=== PATIENT | male | born 1960 | race African-American/Black ===

== ENCOUNTER 2019-09-16 16:03 | Inpatient (IN) ==
--- NOTE | 2019-09-16 16:34 | DR.GENAD ---
HPI Time Seen Time Seen by Provider: 09/16/19 16:36 PCP Primary Care Physician: DR.LEE العراقي HPI Comment HPI Comment: 59 yo aam w/ pmg dm, htn hld presents w/ SOB/ cough x 3 weeks. Patient recently dc'd from [facility] after being admitted for CAP. Hospitalized for 2 weeks. DC'd. Reports since that time experiencing continue productive cough w/ noted white sputum, and SOB/ FOSS. was dc'd from hospital on 2L [place] o2. Denies CP, edema, pnd, fever/ chills, abd pain, n/v, back pain, orthopnea. Complaint/Symptoms Chief Complaint:: "I WAS IN THE HOSPITAL IN [place] AT THE BEGINNING OF THE MONTH FOR PNEUMONIA AND SINCE THEN I HAVE BEEN ON OXYGEN AND IT DOESN'T SEEM TO BE HELPING TODAY. Self Treatment fo Chief Complaint: HOME O2 Nurses notes reviewed Nurses Notes Review: Yes Source History Provided: Patient and Significant Other Mode of Arrival Mode of Arrival: Ambulatory Timing Onset of Chief Complaint: 08/22/19 PMH PMH Past Medical History: Yes Past Medical History: Diabetes and Hyperthyroidism Past Surgical History: Yes Surgical History: Unknown Family History History of Family Medical Conditions: Yes Family Medical History: Diabetes Mellitus, Cancer, Coronary Artery Disease and Hypertension Social History Does patient currently use any type of tobacco product: No Have you used tobacco products in the last 12 months: No Type of Tobacco Use: None Does any household member use tobacco: No Alcohol Use: None Do you use any recreational Drugs:: No Lives With: Spouse Lives Where: Home infectious screening In the last 2 months have you had wt loss of >10#?: NO Have you had fever, night sweats or hemotysis?: No Have you traveled outside the country in the last 6 months?: No ROS Review of Systems Constitutional: No Symptoms Reported Eyes: No Symptoms Reported ENTM: No Symptoms Reported Respiratoy: Productive Cough, Short of Breath and Other (foss); negative Orthopnea Cardiovascular: No Symptoms Reported Gastrointestinal/Abdominal: No Symptoms Reported Genitourinary: No Symptoms Reported Neurological: No Symptoms Reported Musculoskeletal: No Symptoms Reported Integumentary: No Symptoms Reported Hematologic/Lymphatic: No Symptoms Reported Endocrine: No Symptoms Reported Psychiatric: No Symptoms Reported All Other Systems: Reviewed and Negative PE Vital Signs Vitals: Temperature 97.8 F Pulse Rate [Apical] 93 Pulse Rate 84 Respiratory Rate 22 Blood Pressure [Right Arm] 132/84 Blood Pressure 132/84 O2 Sat by Pulse Oximetry 99 General Limitations: No Limitations General Appearance: Alert and Anxious Head Head Exam: Normal Inspection Eyes Eye exam: Normal Appearance ENT ENT Exam: Normal Exam External Ear Exam: Normal External Inspection TM/Canal Exam: Bilateral: Normal Nose Exam: Normal Nose Exam Mouth Exam: Normal Inspection Throat Exam: Normal Inspection Neck Neck Exam: Normal Inspection Chest Chest Inspection: Normal Inspection Respiratory Respiratory Exam: Other (tachypenic, 85% pulse ox on 2L NC, fiant bibasilar rhonchi ); negative Accessory Muscle Use, Chest Wall Tenderness, Prolonged Expiratory Phase and Stridor Respiratory Exam: Bilateral: Clear to Auscultation Cardiovascular Cardiovascular Exam: Regular Rate and Normal Rhythm Abdominal Exam Abdominal Exam: Normal Inspection, Normal Bowel Sounds and Soft Extremities Extremities Exam: Normal Inspection Back Back Exam: Normal Inspection Neurologic Neurological Exam: Alert and Oriented X3 Psychiatric Psychiatric Exam: Normal Affect and Normal Mood Skin Skin Exam: Warm, Dry, Intact and Normal Color MDM Additional Information Additional Information Obtained From: Family Differential Diagnosis Differential Diagnosis: PE, PNA, AL, CHF, sepsis COURSE Treatment Treatment: 59 yo AAM w/ prev hx of htn, hld, dm recently dc'd 2 weeks ago from outside hospital after being dx'd w/ cap. Was discharged on supplemental o2 2L NC. Reports since DC increasing FOSS. Hypoxic on arrival and mildly tacpenic w/ Pulse ox 85% on 2L NC. Improved to 90's on 4L. ABG obtained which demonstrated hypoxemia. CXR demonstrated rll infiltrate, LLL obscured by cardiac silhouette. Lactate <1. CBC and cmp unremarkable. TNI wnl. CTA obtained to r/o PE, negative for pe but did demonstrate complex bibasilar infiltrates vs ILD. Vanco/ cefepime empirically started. Blood / sputum cx ordered. D/w Dr Moody whom agrees to admit. Education/Counseling Education/Counseling: Patient and Family ROR Labs Reviewed Laboratory Results Reviewed?: Yes Result Diagrams: 09/16/19 16:57 09/16/19 16:57 Laboratory: 09/16/19 18:54 Sputum - Expectorated Sputum - Final WBC 7.4 X10^3/uL (3.6-10.0) 09/16/19 16:57 RBC 4.41 X10^6/uL (4.7-6.0) L 09/16/19 16:57 Hgb 11.9 g/dL (13.5-18.0) L 09/16/19 16:57 Hct 35.6 % (42.0-54.0) L 09/16/19 16:57 MCV 80.8 fL (80.0-100.0) 09/16/19 16:57 MCH 26.9 pg (27.0-34.0) L 09/16/19 16:57 MCHC 33.3 g/dL (33.0-35.0) 09/16/19 16:57 RDW 16.1 % (11.6-16.5) 09/16/19 16:57 Plt Count 265 X10^3/uL (150.0-450.0) 09/16/19 16:57 MPV 7.6 fL (7.4-11.0) 09/16/19 16:57 Neut % (Auto) 64.4 % (42.0-75.0) 09/16/19 16:57 Lymph % (Auto) 23.8 % (21.0-51.0) 09/16/19 16:57 [place] % (Auto) 6.8 % (0.0-13.0) 09/16/19 16:57 Eos % (Auto) 4.2 % (0.9-2.9) H 09/16/19 16:57 Baso % (Auto) 0.8 % (0.2-1.0) 09/16/19 16:57 Neut # (Auto) 4.8 x10^3/uL (2.2-4.8) 09/16/19 16:57 Lymph # (Auto) 1.8 X10^3/uL (1.3-2.9) 09/16/19 16:57 [place] # (Auto) 0.5 x10^3/uL (0.3-0.8) 09/16/19 16:57 Eos # (Auto) 0.3 x10^3/uL (0.0-0.2) H 09/16/19 16:57 Baso # (Auto) 0.1 X10^3/uL (0.0-0.1) 09/16/19 16:57 Absolute Nucleated RBC 0.0 /100WBC 09/16/19 16:57 Sample Site Rrad 09/16/19 17:12 ABG pH 7.430 (7.35-7.45) 09/16/19 17:12 ABG pCO2 36.0 mmHg (35.0-45.0) 09/16/19 17:12 ABG pO2 99.0 mmHg (80.0-100.0) 09/16/19 17:12 ABG HCO3 23.9 mmol/L (22-26) 09/16/19 17:12 ABG O2 Saturation 98.0 % (90-100) 09/16/19 17:12 ABG Base Excess -0.1 mmol/L (-2.0-2.0) 09/16/19 17:12 Bony Test Pos 09/16/19 17:12 A-a Gradient 113.0 mmHg 09/16/19 17:12 FiO2 36.0 09/16/19 17:12 Blood Gas Comments Pt nanci well elj 09/16/19 17:12 Sodium 140 mmol/L (136-145) 09/16/19 16:57 Corrected Sodium 140 mmol/L (136-145) 09/16/19 16:57 Potassium 3.4 mmol/L (3.5-5.1) L 09/16/19 16:57 Chloride 106 mmol/L (98-107) 09/16/19 16:57 Carbon Dioxide 21.7 mmol/L (21-32) 09/16/19 16:57 BUN 16 mg/dL (7-18) 09/16/19 16:57 Creatinine 1.20 mg/dL (0.70-1.30) 09/16/19 16:57 Est GFR (MDRD) Af Amer > 60 (>60) 09/16/19 16:57 Est GFR (MDRD) Non-Af > 60 (>60) 09/16/19 16:57 Glucose 116 mg/dL (65-99) H 09/16/19 16:57 Lactic Acid 0.9 mmol/L (0.4-2.0) 09/16/19 17:46 Calcium 8.6 mg/dL (8.5-10.1) 09/16/19 16:57 Troponin I < 0.02 ng/mL (0-1.5) 09/16/19 16:57 EKG Rate: 99 [place]: LAD Rhythm: NSR Block: None ST: Normal Opioid Opioid Risk Tool Total: 0 Total Score Risk Category: Low Risk Copyright: Coleman BAJWA predicting aberrant behaviors Diagnosis Discharge Problem: HAP (hospital-acquired pneumonia), Hypoxemia Instructions Forms: Excuse From Work Patient Portal
[2019-09-16 17:14] LABS: BASOPHILS # (AUTO) 0.1 X10^3/uL (0.0-0.1); BASOPHILS % (AUTO) 0.8 % (0.2-1.0); EOSINOPHILS # (AUTO) 0.3 x10^3/uL (0.0-0.2); EOSINOPHILS % (AUTO) 4.2 % (0.9-2.9); HEMATOCRIT 35.6 % (42.0-54.0); HEMOGLOBIN 11.9 g/dL (13.5-18.0); LYMPHOCYTES # (AUTO) 1.8 X10^3/uL (1.3-2.9); LYMPHOCYTES % (AUTO) 23.8 % (21.0-51.0); MEAN CORPUSCULAR HEMOGLOBIN 26.9 pg (27.0-34.0); MEAN CORPUSCULAR HGB CONC 33.3 g/dL (33.0-35.0); MEAN CORPUSCULAR VOLUME 80.8 fL (80.0-100.0); MEAN PLATELET VOLUME 7.6 fL (7.4-11.0); MONOCYTES # (AUTO) 0.5 x10^3/uL (0.3-0.8); MONOCYTES % (AUTO) 6.8 % (0.0-13.0); NEUTROPHILS # (AUTO) 4.8 x10^3/uL (2.2-4.8); NEUTROPHILS % (AUTO) 64.4 % (42.0-75.0); PLATELET COUNT 265 X10^3/uL (150.0-450.0); RED BLOOD COUNT 4.41 X10^6/uL (4.7-6.0); RED CELL DISTRIBUTION WIDTH 16.1 % (11.6-16.5); WHITE BLOOD COUNT 7.4 X10^3/uL (3.6-10.0)
[2019-09-16 17:19] LABS: ABG ALLEN TEST POS; ABG BASE EXCESS -0.1 mmol/L (-2.0-2.0); ABG HCO3 23.9 mmol/L (22-26)
[2019-09-16 17:38] LABS: BLOOD UREA NITROGEN 16 mg/dL (7-18); CALCIUM 8.6 mg/dL (8.5-10.1); CARBON DIOXIDE 21.7 mmol/L (21-32); CHLORIDE 106 mmol/L (98-107); COR NA(FOR HYPERGLY) 140 mmol/L (136-145); SODIUM 140 mmol/L (136-145); TROPONIN I < 0.02 ng/mL (0-1.5); eGFR NON BLACK RACES > 60 (>60)
[2019-09-16] MEDS ORDERED: VANCOMYCIN HCL 250 MG, VANCOMYCIN HCL 1 G in D5W 250 ML IV 250 ML IV ONE (17:40)
[2019-09-16] MEDS ORDERED: NS IV ONE (17:41)
[2019-09-16] MEDS ORDERED: MAXIPIME IV ONE (17:41)
[2019-09-16] MEDS ORDERED: NS 1000 ML 1,000 ML IV ONE (17:42)
[2019-09-16] MEDS ORDERED: SALINE 3% 15 ML NEB TX NEB ONE (17:43)
[2019-09-16] MEDS ORDERED: SALINE 3% 15 ML NEB TX ONE (17:46)
[2019-09-16] MEDS ORDERED: VANCOMYCIN HCL ONE ×2 (17:47→17:48)
[2019-09-16] MEDS ORDERED: MAXIPIME VIAL 1 GRAM ONE (17:47)
[2019-09-16] MEDS ORDERED: NS 1000 ML 1,000 ML ONE (17:47)
[2019-09-16] MEDS ORDERED: NS 100 ML IV + SPIKE MINIBAG* 100 ML IV ONE (17:49)
[2019-09-16] MEDS ORDERED: NS 250 ML IV 250 ML IV ONE (17:49)
[2019-09-16] MEDS ORDERED: NS 100 ML IV 100 ML IV ONE (17:55)
--- NOTE | 2019-09-16 18:53 | CT ---
HISTORY: Shortness of breath, cough and congestion x1 month Study: CTA chest with contrast Comparison: None Technique: Multiple axial images of the chest were obtained from the thoracic inlet to the upper abdomen after the administration of IV contrast. Axial, sagittal, and coronal maximal intensity planer images were submitted as well. Findings: No central filling defect within the pulmonary arteries to suggest acute pulmonary embolism. Mild cardiomegaly. No pericardial effusion. Coronary artery calcifications. No mediastinal lymphadenopathy. Small hiatal hernia. Diffuse peribronchovascular and interstitial coarse reticular and ground-glass opacities which is in a predominantly basilar distribution. No pleural effusion or pneumothorax. The central airways are clear. Visualized portions of the upper abdomen are unremarkable. The osseous structures are intact. The soft tissues are unremarkable. IMPRESSION: Diffuse peribronchovascular and interstitial interstitial coarse reticular and ground-glass opacities in a predominantly basilar distribution. Findings may reflect infectious/inflammatory interstitial pneumonia or hypersensitivity pneumonitis. Follow-up to resolution recommended. Reported By:
[2019-09-16] MEDS ORDERED: DEXTROMETHORPHAN GUAIFENESIN PO PRN (20:03)
[2019-09-16 20:19] LABS: BILIRUBIN,URINE NEGATIVE (NEGATIVE); BLOOD/HEMOGLOBIN,URINE NEGATIVE (NEGATIVE); GLUCOSE, URINE NEGATIVE (NEGATIVE); KETONES,URINE NEGATIVE (NEGATIVE); LEUKOCYTE ESTERASE ,URINE NEGATIVE (NEGATIVE); NITRITES,URINE NEGATIVE (NEGATIVE); PROTEIN,URINE 1+ (NEGATIVE); UROBILINOGEN,URINE NORMAL (NORMAL)
[2019-09-16 20:26] LABS: APPEARANCE,URINE CLEAR (CLEAR); COLOR,URINE YELLOW (YELLOW)
[2019-09-16 20:27] LABS: BACTERIA,URINE NEGATIVE /HPF (NEGATIVE); RBC,URINE NONE SEEN /HPF (0-3); SQUAMOUS EPITHELIAL CELL,UR RARE /HPF (NEGATIVE)
[2019-09-16] MEDS ORDERED: PHARMACY CONSULT - VANCOMYCIN XX SCH (21:00)
[2019-09-16] MEDS ORDERED: PROVENTIL NEB TX 0.083% 2.5MG/ 3ML NEB SCH ×2 (21:45)
[2019-09-16] MEDS: NS 1000 ML 1,000 ML IV SCH (22:06)
[2019-09-16] MEDS: TESSALON PERLES PO SCH (23:00)
[2019-09-17] MEDS: ROBITUSSIN DM PO PRN ×3 (00:03→16:39)
[2019-09-17] MEDS: NS 1000 ML 1,000 ML IV SCH ×6 (00:03→20:09)
[2019-09-17] MEDS: MAXIPIME VIAL 2 GRAMS 2 G in NS 100 ML IV + SPIKE MINIBAG* 100 ML IV SCH ×4 (00:03→21:17)
[2019-09-17] MEDS: DUONEB 0.5 MG/3 MG NEB SCH ×6 (01:08→20:29)
[2019-09-17 03:31] VITALS: BMI 31.9
[2019-09-17 04:57] LABS: BASOPHILS % (AUTO) 0.6 % (0.2-1.0); EOSINOPHILS # (AUTO) 0.3 x10^3/uL (0.0-0.2); EOSINOPHILS % (AUTO) 4.5 % (0.9-2.9); HEMATOCRIT 34.2 % (42.0-54.0); HEMOGLOBIN 11.3 g/dL (13.5-18.0); LYMPHOCYTES # (AUTO) 1.8 X10^3/uL (1.3-2.9); LYMPHOCYTES % (AUTO) 26.4 % (21.0-51.0); MEAN CORPUSCULAR HEMOGLOBIN 26.5 pg (27.0-34.0); MEAN CORPUSCULAR HGB CONC 33.1 g/dL (33.0-35.0); MEAN PLATELET VOLUME 7.6 fL (7.4-11.0); MONOCYTES # (AUTO) 0.6 x10^3/uL (0.3-0.8); MONOCYTES % (AUTO) 8.4 % (0.0-13.0); NEUTROPHILS % (AUTO) 60.1 % (42.0-75.0); PLATELET COUNT 261 X10^3/uL (150.0-450.0); RED BLOOD COUNT 4.28 X10^6/uL (4.7-6.0); RED CELL DISTRIBUTION WIDTH 15.5 % (11.6-16.5); WHITE BLOOD COUNT 6.7 X10^3/uL (3.6-10.0)
[2019-09-17 05:08] LABS: ALANINE AMINOTRANSFERASE 41 Units/L (12-78); ALBUMIN 2.3 g/dL (3.4-5.0); ALKALINE PHOSPHATASE 47 Units/L (46-116); ASPARTATE AMINO TRANSFERASE 36 Units/L (15-37); BLOOD UREA NITROGEN 12 mg/dL (7-18); CALCIUM 8.2 mg/dL (8.5-10.1); CARBON DIOXIDE 21.6 mmol/L (21-32); CHLORIDE 108 mmol/L (98-107); COR CA(FOR HYPOALB) 9.6 mg/dL (8.5-10.1); CREATININE 1.19 mg/dL (0.70-1.30); SODIUM 141 mmol/L (136-145); TOTAL PROTEIN 6.2 g/dL (6.4-8.2); eGFR NON BLACK RACES > 60 (>60)
[2019-09-17] MEDS: TESSALON PERLES PO SCH ×3 (05:39→21:17)
[2019-09-17] MEDS ORDERED: POTASSIUM CHL 60 MEQ/NS 0.45% 500 ML IV PRN (05:59)
[2019-09-17] MEDS ORDERED: MICRO K EXTEN CAP 10 MEQ PO PRN (05:59)
[2019-09-17] MEDS ORDERED: POTASSIUM CHLORIDE LIQ 20 MEQ UDC PO PRN (05:59)
[2019-09-17] MEDS ORDERED: K-RIDER 10 MEQ/NS 100 ML 10 MEQ/100 ML BAG IV PRN (05:59)
[2019-09-17] MEDS ORDERED: POTASSIUM CHL 40 MEQ/NS 0.45% 500 ML IV PRN (05:59)
[2019-09-17] MEDS ORDERED: KLOR-CON PO PRN (05:59)
[2019-09-17] MEDS: K-DUR TAB 20 MEQ PO PRN (06:22)
[2019-09-17 08:06] LABS: ABG BASE EXCESS -1.8 mmol/L (-2.0-2.0); ABG HCO3 22.1 mmol/L (22-26)
[2019-09-17] MEDS ORDERED: NS 250 ML IV 250 ML IV ONE ×2 (08:13→20:41)
[2019-09-17] MEDS ORDERED: VANCOMYCIN HCL ONE ×3 (08:14→20:42)
[2019-09-17] MEDS: VANCOMYCIN HCL 500 MG, VANCOMYCIN HCL 1 G in NS 250 ML IV 250 ML IV SCH ×2 (08:17→21:16)
[2019-09-17] MEDS: ASPIRIN 81 MG CHEWTAB PO SCH (08:19)
[2019-09-17] MEDS: PULMICORT NEB TX 0.5 MG NEB SCH ×2 (08:46→20:29)
[2019-09-17] MEDS: SOLU-Medrol 125 MG VIAL IVP SCH ×3 (09:54→21:17)
[2019-09-17] MEDS: LOVENOX INJ 40 MG SYR SC SCH (10:30)
[2019-09-17] MEDS ORDERED: HumuLIN R SUBCUT PRN (11:30)
--- NOTE | 2019-09-17 11:39 | DR.H&P ---
H&P History & Physical for Day of: H&P Date: 09/17/19 Chief Complaint Chief Complaint: worsening SOB, cough Allergies Allergies Allergy/AdvReac Type Severity Reaction Status Date / Time No Known Drug Allergies Allergy Verified 09/16/19 16:20 History of Present Illness History of Present Illness: Mr. Cabrera is a 59y/o male recently admitted at [facility] for pneumonia on 08/18/19 and discharged a week later. He was sent home on 2L oxygen and antibiotics. Patient reports his breathing has been worsening since being home. He was told to follow up with Pulmonary on discharge. [facility] and he was told the earliest appointment to see Pulmonary would be in 2 months. He also went back to work and was having SOB on exertion. He has been using 2L oxygen continuously. He has productive cough with white sputum. Denies fever or chills. No sick contact or recent travel. Non- smoker. Past Medical History Past Medical History: Diabetes and Hyperthyroidism Past Surgical History Surgical History: Unknown Family History Family Medical History: Diabetes Mellitus, Cancer, Coronary Artery Disease and Hypertension Social History Does patient currently use any type of tobacco product: No Have you used tobacco products in the last 12 months: No Type of Tobacco Use: None Does any household member use tobacco: No Alcohol Use: None Drug Use: None Prescription drug monitoring program results: PDMP was not reviewed Medications Home Medications: No Known Drug Allergies Allergy (Verified 09/16/19 16:20) CONTINUE taking the following medications albuterol sulfate 2.5 mg INHALATION QID 09/16/19 [History] aspirin 81 mg PO DAILY 09/16/19 [History] benzonatate 100 mg PO TID 09/16/19 [History] dextromethorphan-guaifenesin [Tussin DM] 10 ml PO Q4-6H PRN 09/16/19 [History] metformin 850 mg PO BID 09/16/19 [History] Labs Result Diagrams: 09/17/19 04:35 09/17/19 04:35 Labs: 09/16/19 18:54 Sputum - Expectorated Sputum Sputum Culture - Preliminary 09/16/19 18:54 Sputum - Expectorated Sputum - Final Laboratory WBC 6.7 X10^3/uL (3.6-10.0) 09/17/19 04:35 RBC 4.28 X10^6/uL (4.7-6.0) L 09/17/19 04:35 Hgb 11.3 g/dL (13.5-18.0) L 09/17/19 04:35 Hct 34.2 % (42.0-54.0) L 09/17/19 04:35 MCV 80.0 fL (80.0-100.0) 09/17/19 04:35 MCH 26.5 pg (27.0-34.0) L 09/17/19 04:35 MCHC 33.1 g/dL (33.0-35.0) 09/17/19 04:35 RDW 15.5 % (11.6-16.5) 09/17/19 04:35 Plt Count 261 X10^3/uL (150.0-450.0) 09/17/19 04:35 MPV 7.6 fL (7.4-11.0) 09/17/19 04:35 Neut % (Auto) 60.1 % (42.0-75.0) 09/17/19 04:35 Lymph % (Auto) 26.4 % (21.0-51.0) 09/17/19 04:35 [place] % (Auto) 8.4 % (0.0-13.0) 09/17/19 04:35 Eos % (Auto) 4.5 % (0.9-2.9) H 09/17/19 04:35 Baso % (Auto) 0.6 % (0.2-1.0) 09/17/19 04:35 Neut # (Auto) 4.0 x10^3/uL (2.2-4.8) 09/17/19 04:35 Lymph # (Auto) 1.8 X10^3/uL (1.3-2.9) 09/17/19 04:35 [place] # (Auto) 0.6 x10^3/uL (0.3-0.8) 09/17/19 04:35 Eos # (Auto) 0.3 x10^3/uL (0.0-0.2) H 09/17/19 04:35 Baso # (Auto) 0.0 X10^3/uL (0.0-0.1) 09/17/19 04:35 Absolute Nucleated RBC 0.0 /100WBC 09/17/19 04:35 Sample Site Rbra 09/17/19 08:01 ABG pH 7.420 (7.35-7.45) 09/17/19 08:01 ABG pCO2 34.0 mmHg (35.0-45.0) L 09/17/19 08:01 ABG pO2 61.0 mmHg (80.0-100.0) L 09/17/19 08:01 ABG HCO3 22.1 mmol/L (22-26) 09/17/19 08:01 ABG O2 Saturation 91.0 % (90-100) 09/17/19 08:01 ABG Base Excess -1.8 mmol/L (-2.0-2.0) 09/17/19 08:01 Bony Test Na 09/17/19 08:01 A-a Gradient 46.0 mmHg 09/17/19 08:01 FiO2 21.0 09/17/19 08:01 Blood Gas Comments Renzo abg well-mtf 09/17/19 08:01 Sodium 141 mmol/L (136-145) 09/17/19 04:35 Corrected Sodium TNP 09/17/19 04:35 Potassium 3.7 mmol/L (3.5-5.1) 09/17/19 04:35 Chloride 108 mmol/L (98-107) H 09/17/19 04:35 Carbon Dioxide 21.6 mmol/L (21-32) 09/17/19 04:35 BUN 12 mg/dL (7-18) 09/17/19 04:35 Creatinine 1.19 mg/dL (0.70-1.30) 09/17/19 04:35 Est GFR (MDRD) Af Amer > 60 (>60) 09/17/19 04:35 Est GFR (MDRD) Non-Af > 60 (>60) 09/17/19 04:35 Glucose 88 mg/dL (65-99) 09/17/19 04:35 POC Glucose (mg/dL) 84 mg/dL (65-99) 09/17/19 05:28 Lactic Acid 0.9 mmol/L (0.4-2.0) 09/16/19 17:46 Calcium 8.2 mg/dL (8.5-10.1) L 09/17/19 04:35 Corrected Calcium 9.6 mg/dL (8.5-10.1) 09/17/19 04:35 Total Bilirubin 0.30 mg/dL (0.2-1.0) 09/17/19 04:35 AST 36 Units/L (15-37) 09/17/19 04:35 ALT 41 Units/L (12-78) 09/17/19 04:35 Alkaline Phosphatase 47 Units/L (46-116) 09/17/19 04:35 Troponin I < 0.02 ng/mL (0-1.5) 09/16/19 16:57 Total Protein 6.2 g/dL (6.4-8.2) L 09/17/19 04:35 Albumin 2.3 g/dL (3.4-5.0) L 09/17/19 04:35 Globulin 3.9 g/dL (2.5-4.5) 09/17/19 04:35 Albumin/Globulin Ratio 0.6 Ratio (1.1-2.1) L 09/17/19 04:35 Specimen Type Clean catch urine 09/16/19 20:11 Urine Color Yellow (YELLOW) 09/16/19 20:11 Urine Appearance Clear (CLEAR) 09/16/19 20:11 Urine pH 5.0 (5.0 - 8.0) 09/16/19 20:11 Ur Specific [place] 1.015 (1.000-1.030) 09/16/19 20:11 Urine Protein 1+ (NEGATIVE) 09/16/19 20:11 Urine Glucose (UA) Negative (NEGATIVE) 09/16/19 20:11 Urine Ketones Negative (NEGATIVE) 09/16/19 20:11 Urine Occult Blood Negative (NEGATIVE) 09/16/19 20:11 Urine Nitrite Negative (NEGATIVE) 09/16/19 20:11 Urine Bilirubin Negative (NEGATIVE) 09/16/19 20:11 Urine Urobilinogen Normal (NORMAL) 09/16/19 20:11 Ur Leukocyte Esterase Negative (NEGATIVE) 09/16/19 20:11 Urine RBC None seen /HPF (0-3) 09/16/19 20:11 Urine WBC None seen /HPF (0-5) 09/16/19 20:11 Ur Squamous Epith Cells Rare /HPF (NEGATIVE) 09/16/19 20:11 Urine Bacteria Negative /HPF (NEGATIVE) 09/16/19 20:11 Ur Culture Indicated? No/not indicated 09/16/19 20:11 Review of Systems Constitutional: denies Fever, Chills, Sweats and Malaise Eyes: No Symptoms Reported ENT: No Symptoms Reported Respiratory: Cough, Shortness of Breath, SOB with Excertion and Sputum Cardiovascular: denies Chest Pain and Edema Gastrointestinal: denies Nausea, Vomiting, Abdominal Pain and Diarrhea Genitourinary: No Symptoms Reported Musculoskeletal: No Symptoms Reported Skin: No Symptoms Reported Neurological: No Symptoms Reported Physical Exam Vital Signs: Temperature 98.9 F Pulse Rate [Apical] 99 Pulse Rate 94 Respiratory Rate 28 Blood Pressure [Right Arm] 137/71 Blood Pressure 132/84 O2 Sat by Pulse Oximetry 94 Oriented: Normal Eyes: Normal Nose: Normal Throat: Normal Respiratory: Diminished Throughout and Rales Throughout Cardiovascular: Normal Auscultation: Bowel Sounds: Normal Palpation: Normal Tenderness: Normal Skin: Normal Musculoskeletal: Normal Psychiatric: Normal Mood Description: Calm Affect: Normal Speech Pattern: Clear and Appropriate Assessment/Plan (1) HAP (hospital-acquired pneumonia): Status: Acute Plan: CTA: negative for PE. Diffuse peribronchovascular and interstitial interstitial coarse reticular and ground-glass opacities in a predominantly basilar distribution. Findings may reflect infectious/inflammatory interstitial pneumonia or hypersensitivity pneumonitis. 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 Will treat at [facility] with vancomycin and cefepime. Add solumedrol 60 mg IV q8hrs. Duonebs, Pulmicort BID, aggressive pulmonary toilet. Sputum cx pending (2) Hypoxemia: Status: Acute Plan: noted on ABG, continue O2, currently on 4L, wean as tolerated to keep sats >92%. (3) Type 2 diabetes mellitus: Status: Acute Plan: on metformin 850 BID, will continue SSI while inpatient
[2019-09-17] MEDS: SNACK - Diabetic Appropriate PO SCH (20:08)
[2019-09-17] MEDS ORDERED: ZITHROMAX TAB 250 MG PO ONE (22:05)
[2019-09-17 23:46] LABS: MYCOPLASMA PNEUMONIAE IGM AB NEGATIVE (NEGATIVE)
[2019-09-18] MEDS: DUONEB 0.5 MG/3 MG NEB SCH ×6 (00:15→23:06)
[2019-09-18] MEDS ORDERED: ZITHROMAX TAB 250 MG PO ONE (00:24)
[2019-09-18] MEDS: NS 1000 ML 1,000 ML IV SCH ×4 (01:53→21:30)
--- NOTE | 2019-09-18 06:03 | RAD ---
HISTORY: Follow-up pneumonia Study: Chest PA and lateral Comparison: 09/16/2019 Findings: The heart is enlarged. The aurelio are normal. The upper lung trevizo are clear. Bibasilar interstitial and peribronchial infiltrates are present suggestive of bronchopneumonia and unchanged from the prior examination. No pleural effusions are identified. The bony thorax is unremarkable. IMPRESSION: No change bibasilar interstitial and peribronchial infiltrates suggestive of bibasilar bronchopneumonia Reported By:
[2019-09-18] MEDS: MAXIPIME VIAL 2 GRAMS 2 G in NS 100 ML IV + SPIKE MINIBAG* 100 ML IV SCH ×3 (06:15→21:16)
[2019-09-18] MEDS: SOLU-Medrol 125 MG VIAL IVP SCH ×3 (06:15→21:15)
[2019-09-18] MEDS: TESSALON PERLES PO SCH ×3 (06:15→21:16)
[2019-09-18 06:26] LABS: BLOOD UREA NITROGEN 17 mg/dL (7-18); CALCIUM 8.2 mg/dL (8.5-10.1); CARBON DIOXIDE 19.2 mmol/L (21-32); CHLORIDE 107 mmol/L (98-107); COR NA(FOR HYPERGLY) 141 mmol/L (136-145); CREATININE 1.28 mg/dL (0.70-1.30); SODIUM 140 mmol/L (136-145); eGFR NON BLACK RACES > 60 (>60)
[2019-09-18 06:33] LABS: BASOPHILS % (AUTO) 0.4 % (0.2-1.0); HEMATOCRIT 33.8 % (42.0-54.0); HEMOGLOBIN 11.4 g/dL (13.5-18.0); LYMPHOCYTES # (AUTO) 1.1 X10^3/uL (1.3-2.9); LYMPHOCYTES % (AUTO) 11.1 % (21.0-51.0); MEAN CORPUSCULAR HGB CONC 33.6 g/dL (33.0-35.0); MEAN CORPUSCULAR VOLUME 80.3 fL (80.0-100.0); MEAN PLATELET VOLUME 8.2 fL (7.4-11.0); MONOCYTES # (AUTO) 0.2 x10^3/uL (0.3-0.8); MONOCYTES % (AUTO) 2.3 % (0.0-13.0); NEUTROPHILS # (AUTO) 8.9 x10^3/uL (2.2-4.8); NEUTROPHILS % (AUTO) 86.2 % (42.0-75.0); PLATELET COUNT 256 X10^3/uL (150.0-450.0); RED BLOOD COUNT 4.21 X10^6/uL (4.7-6.0); RED CELL DISTRIBUTION WIDTH 15.6 % (11.6-16.5); WHITE BLOOD COUNT 10.3 X10^3/uL (3.6-10.0)
[2019-09-18] MEDS: PULMICORT NEB TX 0.5 MG NEB SCH ×2 (08:27→23:06)
[2019-09-18] MEDS: VANCOMYCIN HCL 500 MG, VANCOMYCIN HCL 1 G in NS 250 ML IV 250 ML IV SCH ×4 (08:38→22:34)
[2019-09-18] MEDS: ASPIRIN 81 MG CHEWTAB PO SCH (08:38)
[2019-09-18] MEDS: K-DUR TAB 20 MEQ PO PRN (08:38)
[2019-09-18] MEDS: ROBITUSSIN DM PO PRN (08:39)
--- NOTE | 2019-09-18 08:45 | PCM.PROG ---
Progress Note Progress Note for Day of Date of Exam: 09/18/19 Subjective Subjective: Pt is a 59 y/o m recently admitted at [facility] for pneumonia on 08/18/19 and discharged a week later. He was sent home on 2L O2 and antibiotics. His breathing has worsened since being home. He was told to follow up with Pulmonary on discharge. [facility] and he was told the earliest appointment to see Pulmonary would be in 2 months. He also went back to work and was having SOB on exertion. He has been using 2L oxygen continuously. He has productive cough with white sputum. Denies fever or chills. No sick contact or recent travel. Non-smoker. -CTA(09/16): negative for PE. Diffuse peribronchovascular and interstitial interstitial coarse reticular and ground-glass opacities in a predominantly basilar distribution. Findings may reflect infectious/ inflammatory interstitial pneumonia or hypersensitivity pneumonitis. -CXR(09/18):No change bibasilar interstitial and peribronchial infiltrates suggestive of bibasilar bronchopneumonia. -Pt report little improvement in breathing from yesterday. Past Medical Family Social History Past Med/Fam/Surg Hx: No changes since H&P Allergies: Allergies No Known Drug Allergies Allergy (Verified 09/16/19 16:20) Vital Signs and I&O's Vital Signs: Temperature 97.7 F Pulse Rate [Apical] 93 Pulse Rate 98 Respiratory Rate 20 Blood Pressure [Right Arm] 135/66 Blood Pressure 132/84 O2 Sat by Pulse Oximetry 93 Intake and Output: Intake & Output 09/15/19 09/16/19 09/17/19 09/18/19 23:59 23:59 23:59 23:59 Intake Total 240 / 240 3190 / 3190 200 / 200 Balance 240 / 240 3190 / 3190 200 / 200 Physical Exam Oriented: Normal Eyes: Normal Nose: Normal Throat: Normal Cardiovascular: Normal Auscultation: Bowel Sounds: Normal Tenderness: Normal Skin: Normal Musculoskeletal: Normal Psychiatric: Normal Mood Description: Calm Affect: Normal Speech Pattern: Clear and Appropriate Laboratory and Diagnostics Result Diagrams: 09/18/19 06:05 09/18/19 06:05 Labs: 09/16/19 18:54 Sputum - Expectorated Sputum Sputum Culture - Preliminary 09/16/19 18:54 Sputum - Expectorated Sputum - Final Laboratory WBC 10.3 X10^3/uL (3.6-10.0) H 09/18/19 06:05 RBC 4.21 X10^6/uL (4.7-6.0) L 09/18/19 06:05 Hgb 11.4 g/dL (13.5-18.0) L 09/18/19 06:05 Hct 33.8 % (42.0-54.0) L 09/18/19 06:05 MCV 80.3 fL (80.0-100.0) 09/18/19 06:05 MCH 27.0 pg (27.0-34.0) 09/18/19 06:05 MCHC 33.6 g/dL (33.0-35.0) 09/18/19 06:05 RDW 15.6 % (11.6-16.5) 09/18/19 06:05 Plt Count 256 X10^3/uL (150.0-450.0) 09/18/19 06:05 MPV 8.2 fL (7.4-11.0) 09/18/19 06:05 Neut % (Auto) 86.2 % (42.0-75.0) H 09/18/19 06:05 Lymph % (Auto) 11.1 % (21.0-51.0) L 09/18/19 06:05 [place] % (Auto) 2.3 % (0.0-13.0) 09/18/19 06:05 Eos % (Auto) 0.0 % (0.9-2.9) L 09/18/19 06:05 Baso % (Auto) 0.4 % (0.2-1.0) 09/18/19 06:05 Neut # (Auto) 8.9 x10^3/uL (2.2-4.8) H 09/18/19 06:05 Lymph # (Auto) 1.1 X10^3/uL (1.3-2.9) L 09/18/19 06:05 [place] # (Auto) 0.2 x10^3/uL (0.3-0.8) L 09/18/19 06:05 Eos # (Auto) 0.0 x10^3/uL (0.0-0.2) 09/18/19 06:05 Baso # (Auto) 0.0 X10^3/uL (0.0-0.1) 09/18/19 06:05 Absolute Nucleated RBC 0.0 /100WBC 09/18/19 06:05 Sample Site Rbra 09/17/19 08:01 ABG pH 7.420 (7.35-7.45) 09/17/19 08:01 ABG pCO2 34.0 mmHg (35.0-45.0) L 09/17/19 08:01 ABG pO2 61.0 mmHg (80.0-100.0) L 09/17/19 08:01 ABG HCO3 22.1 mmol/L (22-26) 09/17/19 08:01 ABG O2 Saturation 91.0 % (90-100) 09/17/19 08:01 ABG Base Excess -1.8 mmol/L (-2.0-2.0) 09/17/19 08:01 Bony Test Na 09/17/19 08:01 A-a Gradient 46.0 mmHg 09/17/19 08:01 FiO2 21.0 09/17/19 08:01 Blood Gas Comments Renzo abg well-mtf 09/17/19 08:01 Sodium 140 mmol/L (136-145) 09/18/19 06:05 Corrected Sodium 141 mmol/L (136-145) 09/18/19 06:05 Potassium 3.8 mmol/L (3.5-5.1) 09/18/19 06:05 Chloride 107 mmol/L (98-107) 09/18/19 06:05 Carbon Dioxide 19.2 mmol/L (21-32) L 09/18/19 06:05 BUN 17 mg/dL (7-18) 09/18/19 06:05 Creatinine 1.28 mg/dL (0.70-1.30) 09/18/19 06:05 Est GFR (MDRD) Af Amer > 60 (>60) 09/18/19 06:05 Est GFR (MDRD) Non-Af > 60 (>60) 09/18/19 06:05 Glucose 123 mg/dL (65-99) H 09/18/19 06:05 POC Glucose (mg/dL) 125 mg/dL (65-99) H 09/18/19 06:00 Lactic Acid 0.9 mmol/L (0.4-2.0) 09/16/19 17:46 Calcium 8.2 mg/dL (8.5-10.1) L 09/18/19 06:05 Corrected Calcium 9.6 mg/dL (8.5-10.1) 09/17/19 04:35 Magnesium 1.6 mg/dL (1.7-2.9) L 09/18/19 06:05 Total Bilirubin 0.30 mg/dL (0.2-1.0) 09/17/19 04:35 AST 36 Units/L (15-37) 09/17/19 04:35 ALT 41 Units/L (12-78) 09/17/19 04:35 Alkaline Phosphatase 47 Units/L (46-116) 09/17/19 04:35 Troponin I < 0.02 ng/mL (0-1.5) 09/16/19 16:57 Total Protein 6.2 g/dL (6.4-8.2) L 09/17/19 04:35 Albumin 2.3 g/dL (3.4-5.0) L 09/17/19 04:35 Globulin 3.9 g/dL (2.5-4.5) 09/17/19 04:35 Albumin/Globulin Ratio 0.6 Ratio (1.1-2.1) L 09/17/19 04:35 Specimen Type Clean catch urine 09/16/19 20:11 Urine Color Yellow (YELLOW) 09/16/19 20:11 Urine Appearance Clear (CLEAR) 09/16/19 20:11 Urine pH 5.0 (5.0 - 8.0) 09/16/19 20:11 Ur Specific [place] 1.015 (1.000-1.030) 09/16/19 20:11 Urine Protein 1+ (NEGATIVE) 09/16/19 20:11 Urine Glucose (UA) Negative (NEGATIVE) 09/16/19 20:11 Urine Ketones Negative (NEGATIVE) 09/16/19 20:11 Urine Occult Blood Negative (NEGATIVE) 09/16/19 20:11 Urine Nitrite Negative (NEGATIVE) 09/16/19 20:11 Urine Bilirubin Negative (NEGATIVE) 09/16/19 20:11 Urine Urobilinogen Normal (NORMAL) 09/16/19 20:11 Ur Leukocyte Esterase Negative (NEGATIVE) 10/26/19 20:11 Urine RBC None seen /HPF (0-3) 09/16/19 20:11 Urine WBC None seen /HPF (0-5) 09/16/19 20:11 Ur Squamous Epith Cells Rare /HPF (NEGATIVE) 09/16/19 20:11 Urine Bacteria Negative /HPF (NEGATIVE) 09/16/19 20:11 Ur Culture Indicated? No/not indicated 09/16/19 20:11 Influenza Type A (PCR) Negative (NEGATIVE) 09/18/19 00:05 Influenza Type B (PCR) Negative (NEGATIVE) 09/18/19 00:05 Mycoplasma pneumon IgG Negative (NEGATIVE) 09/17/19 22:41 Plan (1) HAP (hospital-acquired pneumonia): Status: Acute Plan: CXR today-No change bibasilar interstitial and peribronchial infiltrates suggestive of bibasilar bronchopneumonia. 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 Recent admission for pne umonia. Will treat at [facility] with Abx(09/17):Vancomycin +Cefepime+Azithromycin Add solumedrol 60 mg IV q8hrs. Duonebs, Pulmicort BID, aggressive pulmonary toilet. Sputum cx pending Continue to monitor. (2) Hypoxemia: Status: Acute Plan: noted on ABG, continue O2, currently on 4L, wean as tolerated to keep sats >92%. (3) Type 2 diabetes mellitus: Status: Acute Qualifiers: Diabetes mellitus residential insulin use: unspecified residential insulin use status Diabetes mellitus complication status: with other specified complication Qualified Code(s): E11.69 - Type 2 diabetes mellitus with other specified complication Plan: on metformin 850 BID, will continue SSI while inpatient
[2019-09-18] MEDS: LOVENOX INJ 40 MG SYR SC SCH (09:38)
[2019-09-18] MEDS: ZITHROMAX TAB 250 MG PO SCH (13:18)
[2019-09-18] MEDS ORDERED: PHARMACY COMMENT IV SCH (20:45)
[2019-09-18] MEDS: SNACK - Diabetic Appropriate PO SCH (21:29)
[2019-09-18 21:39] LABS: CREATININE 1.28 mg/dL (0.70-1.30); VANCOMYCIN,TROUGH 11.2 ug/mL (15-20)
[2019-09-18] MEDS ORDERED: VANCOMYCIN HCL ONE ×2 (22:11)
[2019-09-18] MEDS ORDERED: NS 250 ML IV 250 ML IV ONE (22:11)
[2019-09-19] MEDS: DUONEB 0.5 MG/3 MG NEB SCH ×4 (00:07→17:22)
[2019-09-19] MEDS: MAXIPIME VIAL 2 GRAMS 2 G in NS 100 ML IV + SPIKE MINIBAG* 100 ML IV SCH ×3 (05:20→21:10)
[2019-09-19] MEDS: TESSALON PERLES PO SCH ×3 (05:21→21:10)
[2019-09-19] MEDS: SOLU-Medrol 125 MG VIAL IVP SCH ×3 (05:38→21:09)
[2019-09-19 06:20] LABS: BASOPHILS # (AUTO) 0.1 X10^3/uL (0.0-0.1); BASOPHILS % (AUTO) 0.3 % (0.2-1.0); HEMATOCRIT 35.1 % (42.0-54.0); HEMOGLOBIN 11.7 g/dL (13.5-18.0); LYMPHOCYTES # (AUTO) 1.3 X10^3/uL (1.3-2.9); LYMPHOCYTES % (AUTO) 6.3 % (21.0-51.0); MEAN CORPUSCULAR HEMOGLOBIN 26.7 pg (27.0-34.0); MEAN CORPUSCULAR HGB CONC 33.2 g/dL (33.0-35.0); MEAN CORPUSCULAR VOLUME 80.6 fL (80.0-100.0); MEAN PLATELET VOLUME 8.1 fL (7.4-11.0); MONOCYTES # (AUTO) 1.2 x10^3/uL (0.3-0.8); MONOCYTES % (AUTO) 5.7 % (0.0-13.0); NEUTROPHILS # (AUTO) 17.9 x10^3/uL (2.2-4.8); NEUTROPHILS % (AUTO) 87.7 % (42.0-75.0); PLATELET COUNT 317 X10^3/uL (150.0-450.0); RED BLOOD COUNT 4.36 X10^6/uL (4.7-6.0); RED CELL DISTRIBUTION WIDTH 15.5 % (11.6-16.5); WHITE BLOOD COUNT 20.5 X10^3/uL (3.6-10.0)
[2019-09-19 06:59] LABS: BLOOD UREA NITROGEN 20 mg/dL (7-18); CHLORIDE 109 mmol/L (98-107); CREATININE 1.22 mg/dL (0.70-1.30); SODIUM 140 mmol/L (136-145); eGFR NON BLACK RACES > 60 (>60)
--- NOTE | 2019-09-19 08:00 | PCM.PROG ---
Progress Note Progress Note for Day of Date of Exam: 09/19/19 Subjective Subjective: Pt is a 59 y/o m recently admitted at [facility] for pneumonia on 08/18/19 and discharged a week later. He was sent home on 2L O2 and antibiotics. His breathing has worsened since being home. He was told to follow up with Pulmonary on discharge. [facility] and he was told the earliest appointment to see Pulmonary would be in 2 months. He also went back to work and was having SOB on exertion. He has been using 2L oxygen continuously. He has productive cough with white sputum. Denies fever or chills. No sick contact or recent travel. Non-smoker. -CTA(09/16): negative for PE. Diffuse peribronchovascular and interstitial interstitial coarse reticular and ground-glass opacities in a predominantly basilar distribution. Findings may reflect infectious/ inflammatory interstitial pneumonia or hypersensitivity pneumonitis. -CXR(09/18):No change bibasilar interstitial and peribronchial infiltrates suggestive of bibasilar bronchopneumonia. -Pt feeling a little better today, however still requiring 4L O2. He has been coughing up white sputum. Afebrile. Past Medical Family Social History Past Med/Fam/Surg Hx: No changes since H&P Allergies: Allergies No Known Drug Allergies Allergy (Verified 09/16/19 16:20) Review of Systems ROS: No change since H&P Vital Signs and I&O's Vital Signs: Temperature 98.3 F Pulse Rate [Apical] 90 Pulse Rate 98 Respiratory Rate 20 Blood Pressure [Right Arm] 146/78 Blood Pressure 132/84 O2 Sat by Pulse Oximetry 96 Intake and Output: Intake & Output 09/16/19 09/17/19 09/18/19 09/19/19 23:59 23:59 23:59 23:59 Intake Total 240 / 240 3190 / 3190 4305 / 4305 120 / 120 Balance 240 / 240 3190 / 3190 4305 / 4305 120 / 120 Physical Exam Oriented: Normal Eyes: Normal Nose: Normal Throat: Normal Cardiovascular: Normal Auscultation: Bowel Sounds: Normal Tenderness: Normal Skin: Normal Musculoskeletal: Normal Psychiatric: Normal Mood Description: Calm Affect: Normal Speech Pattern: Clear and Appropriate Laboratory and Diagnostics Result Diagrams: 09/19/19 05:22 09/19/19 05:22 Labs: 09/16/19 17:01 Blood Blood Culture - Preliminary 09/16/19 16:57 Blood Blood Culture - Preliminary 09/16/19 18:54 Sputum - Expectorated Sputum Sputum Culture - Final 09/16/19 18:54 Sputum - Expectorated Sputum - Final Laboratory WBC 20.5 X10^3/uL (3.6-10.0) H D 09/19/19 05:22 RBC 4.36 X10^6/uL (4.7-6.0) L 09/19/19 05:22 Hgb 11.7 g/dL (13.5-18.0) L 09/19/19 05:22 Hct 35.1 % (42.0-54.0) L 09/19/19 05:22 MCV 80.6 fL (80.0-100.0) 09/19/19 05:22 MCH 26.7 pg (27.0-34.0) L 09/19/19 05:22 MCHC 33.2 g/dL (33.0-35.0) 09/19/19 05:22 RDW 15.5 % (11.6-16.5) 09/19/19 05:22 Plt Count 317 X10^3/uL (150.0-450.0) 09/19/19 05:22 MPV 8.1 fL (7.4-11.0) 09/19/19 05:22 Neut % (Auto) 87.7 % (42.0-75.0) H 09/19/19 05:22 Lymph % (Auto) 6.3 % (21.0-51.0) L 09/19/19 05:22 [place] % (Auto) 5.7 % (0.0-13.0) 09/19/19 05:22 Eos % (Auto) 0.0 % (0.9-2.9) L 09/19/19 05:22 Baso % (Auto) 0.3 % (0.2-1.0) 09/19/19 05:22 Neut # (Auto) 17.9 x10^3/uL (2.2-4.8) H 09/19/19 05:22 Lymph # (Auto) 1.3 X10^3/uL (1.3-2.9) 09/19/19 05:22 [place] # (Auto) 1.2 x10^3/uL (0.3-0.8) H 09/19/19 05:22 Eos # (Auto) 0.0 x10^3/uL (0.0-0.2) 09/19/19 05:22 Baso # (Auto) 0.1 X10^3/uL (0.0-0.1) 09/19/19 05:22 Absolute Nucleated RBC 0.0 /100WBC 09/19/19 05:22 Sample Site Rbra 09/17/19 08:01 ABG pH 7.420 (7.35-7.45) 09/17/19 08:01 ABG pCO2 34.0 mmHg (35.0-45.0) L 09/17/19 08:01 ABG pO2 61.0 mmHg (80.0-100.0) L 09/17/19 08:01 ABG HCO3 22.1 mmol/L (22-26) 09/17/19 08:01 ABG O2 Saturation 91.0 % (90-100) 09/17/19 08:01 ABG Base Excess -1.8 mmol/L (-2.0-2.0) 09/17/19 08:01 Bony Test Na 09/17/19 08:01 A-a Gradient 46.0 mmHg 09/17/19 08:01 FiO2 21.0 09/17/19 08:01 Blood Gas Comments Renzo abg well-mtf 09/17/19 08:01 Sodium 140 mmol/L (136-145) 09/19/19 05:22 Corrected Sodium TNP 09/19/19 05:22 Potassium 3.9 mmol/L (3.5-5.1) 09/19/19 05:22 Chloride 109 mmol/L (98-107) H 09/19/19 05:22 Carbon Dioxide 18.0 mmol/L (21-32) L 09/19/19 05:22 BUN 20 mg/dL (7-18) H 09/19/19 05:22 Creatinine 1.22 mg/dL (0.70-1.30) 09/19/19 05:22 Est GFR (MDRD) Af Amer > 60 (>60) 09/19/19 05:22 Est GFR (MDRD) Non-Af > 60 (>60) 09/19/19 05:22 Glucose 109 mg/dL (65-99) H 09/19/19 05:22 POC Glucose (mg/dL) 110 mg/dL (65-99) H 09/19/19 05:32 Lactic Acid 0.9 mmol/L (0.4-2.0) 09/16/19 17:46 Calcium 9.0 mg/dL (8.5-10.1) 09/19/19 05:22 Corrected Calcium 9.6 mg/dL (8.5-10.1) 09/17/19 04:35 Magnesium 1.6 mg/dL (1.7-2.9) L 09/18/19 06:05 Total Bilirubin 0.30 mg/dL (0.2-1.0) 09/17/19 04:35 AST 36 Units/L (15-37) 09/17/19 04:35 ALT 41 Units/L (12-78) 09/17/19 04:35 Alkaline Phosphatase 47 Units/L (46-116) 09/17/19 04:35 Troponin I < 0.02 ng/mL (0-1.5) 09/16/19 16:57 Total Protein 6.2 g/dL (6.4-8.2) L 09/17/19 04:35 Albumin 2.3 g/dL (3.4-5.0) L 09/17/19 04:35 Globulin 3.9 g/dL (2.5-4.5) 09/17/19 04:35 Albumin/Globulin Ratio 0.6 Ratio (1.1-2.1) L 09/17/19 04:35 Specimen Type Clean catch urine 09/16/19 20:11 Urine Color Yellow (YELLOW) 09/16/19 20:11 Urine Appearance Clear (CLEAR) 09/16/19 20:11 Urine pH 5.0 (5.0 - 8.0) 09/16/19 20:11 Ur Specific [place] 1.015 (1.000-1.030) 09/16/19 20:11 Urine Protein 1+ (NEGATIVE) 09/16/19 20:11 Urine Glucose (UA) Negative (NEGATIVE) 09/16/19 20:11 Urine Ketones Negative (NEGATIVE) 09/16/19 20:11 Urine Occult Blood Negative (NEGATIVE) 09/16/19 20:11 Urine Nitrite Negative (NEGATIVE) 09/16/19 20:11 Urine Bilirubin Negative (NEGATIVE) 09/16/19 20:11 Urine Urobilinogen Normal (NORMAL) 09/16/19 20:11 Ur Leukocyte Esterase Negative (NEGATIVE) 09/16/19 20:11 Urine RBC None seen /HPF (0-3) 09/16/19 20:11 Urine WBC None seen /HPF (0-5) 09/16/19 20:11 Ur Squamous Epith Cells Rare /HPF (NEGATIVE) 09/16/19 20:11 Urine Bacteria Negative /HPF (NEGATIVE) 09/16/19 20:11 Ur Culture Indicated? No/not indicated 09/16/19 20:11 Vancomycin Trough 11.2 ug/mL (15-20) L 09/18/19 21:11 Influenza Type A (PCR) Negative (NEGATIVE) 09/18/19 00:05 Influenza Type B (PCR) Negative (NEGATIVE) 09/18/19 00:05 Mycoplasma pneumon IgG Negative (NEGATIVE) 09/17/19 22:41 Plan (1) HAP (hospital-acquired pneumonia): Status: Acute Plan: Pt w/ no change in O2 requirement. He did not require home O2 until recent hospitalization and likely needs bronchoscopy that this facility is unable to provide. CM to look into available options, otherwise will need referral to pulmonary. Discussed w/ pt and CM that patient will need to be continued on supplemental home O2 on discharge. I explained to patient he would also need to complete antibiotic course and be on a tapered steroid regimen. Will also benefit from referral to pulmonary rehab. CXR(09/18)-No change bibasilar interstitial and peribronchial infiltrates suggestive of bibasilar bronchopneumonia. 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 Will treat as HCAP with Abx(09/17):Vancomycin +Cefepime+Azithromycin Add solumedrol 60 mg IV q8hrs. Duonebs, Pulmicort BID, aggressive pulmonary toilet. SputumCx:Normal charis Continue to monitor. (2) Hypoxemia: Status: Acute Plan: noted on ABG, continue O2, currently on 4L, wean as tolerated to keep sats >92%. (3) Type 2 diabetes mellitus: Status: Chronic Qualifiers: Diabetes mellitus complication status: with other specified complication Diabetes mellitus alf insulin use: unspecified continuous churn buttermaker insulin use s tatus Qualified Code(s): E11.69 - Type 2 diabetes mellitus with other specified complication Plan: on metformin 850 BID, will continue SSI while inpatient
[2019-09-19] MEDS: LOVENOX INJ 40 MG SYR SC SCH (08:29)
[2019-09-19] MEDS: ZITHROMAX TAB 250 MG PO SCH (08:29)
[2019-09-19] MEDS: ASPIRIN 81 MG CHEWTAB PO SCH (08:29)
[2019-09-19] MEDS: PULMICORT NEB TX 0.5 MG NEB SCH ×2 (09:00→21:10)
[2019-09-19] MEDS: ROBITUSSIN DM PO PRN (13:21)
[2019-09-19] MEDS: VANCOMYCIN HCL 250 MG, VANCOMYCIN HCL 1 G in D5W 250 ML IV 250 ML IV SCH ×2 (13:23→21:09)
[2019-09-19] MEDS ORDERED: NS 250 ML IV 250 ML IV ONE (20:05)
[2019-09-19] MEDS: SNACK - Diabetic Appropriate PO SCH (21:15)
[2019-09-20] MEDS: DUONEB 0.5 MG/3 MG NEB SCH ×3 (00:55→11:23)
[2019-09-20] MEDS: SOLU-Medrol 125 MG VIAL IVP SCH (05:31)
[2019-09-20] MEDS: TESSALON PERLES PO SCH (05:32)
[2019-09-20] MEDS: VANCOMYCIN HCL 250 MG, VANCOMYCIN HCL 1 G in D5W 250 ML IV 250 ML IV SCH (05:32)
[2019-09-20] MEDS: MAXIPIME VIAL 2 GRAMS 2 G in NS 100 ML IV + SPIKE MINIBAG* 100 ML IV SCH (05:32)
[2019-09-20 05:37] LABS: BLOOD UREA NITROGEN 21 mg/dL (7-18); CALCIUM 8.8 mg/dL (8.5-10.1); CARBON DIOXIDE 21.4 mmol/L (21-32); CHLORIDE 108 mmol/L (98-107); COR NA(FOR HYPERGLY) 140 mmol/L (136-145); CREATININE 1.14 mg/dL (0.70-1.30); SODIUM 139 mmol/L (136-145); eGFR NON BLACK RACES > 60 (>60)
--- NOTE | 2019-09-20 06:15 | RAD ---
HISTORY: Hypoxemia Study: PA and lateral chest Comparison: 09/18/2019 Findings: The heart remains enlarged. No congestive heart failure is noted. The lungs are well inflated. Bibasilar peribronchial infiltrates suggestive of bronchopneumonia are unchanged. The upper lung trevizo are clear. The bony thorax is unremarkable. IMPRESSION: No significant change from the prior examination Reported By:
[2019-09-20 07:04] LABS: ABG BASE EXCESS -1.9 mmol/L (-2.0-2.0); ABG HCO3 22.2 mmol/L (22-26)
[2019-09-20 07:06] LABS: ABG ALLEN TEST POS
--- NOTE | 2019-09-20 08:25 | PCM.PROG ---
Progress Note Progress Note for Day of Date of Exam: 09/20/19 Subjective Subjective: Pt is a 59 y/o m pmhx DMT2 that was treated multiple times at another facility in [place], [place] for bronchopneumonia that started around one month prior to this admission. He was treated w/ antibiotics and discharged w/ home O2 of 2L(previously did not require any oxygen supplementation). His breathing has worsened since being home. He was told to follow up with Pulmonary on discharge. [facility] is [facility] and he was told the earliest appointment to see Pulmonary would be in 2 months. In ED, he was noted to be severely hypoxic. He denied fevers, but reported continued productive cough with white sputum. No sick contact or recent travel. Non-smoker. -CXR(09/20/19): no change from prior -CTA(09/16/19): negative for PE. Diffuse peribronchovascular and interstitial interstitial coarse reticular and ground-glass opacities in a predominantly basilar distribution. Findings may reflect infectious/ inflammatory interstitial pneumonia or hypersensitivity pneumonitis. -CXR(09/18):No change bibasilar interstitial and peribronchial infiltrates suggestive of bibasilar bronchopneumonia. -Pt still requiring 4L O2nc. Coughing up mucous, white sputum. Past Medical Family Social History Past Med/Fam/Surg Hx: No changes since H&P Allergies: Allergies No Known Drug Allergies Allergy (Verified 09/16/19 16:20) Review of Systems ROS: No change since H&P Vital Signs and I&O's Vital Signs: Temperature 98.1 F Pulse Rate [Apical] 86 Pulse Rate 89 Respiratory Rate 20 Blood Pressure [Left Arm] 131/80 Blood Pressure [Right Arm] 129/67 Blood Pressure 132/84 O2 Sat by Pulse Oximetry 98 Intake and Output: Intake & Output 09/17/19 09/18/19 09/19/19 09/20/19 23:59 23:59 23:59 23:59 Intake Total 3190 / 3190 4305 / 4305 2100 / 2100 120 / 120 Balance 3190 / 3190 4305 / 4305 2100 / 2100 120 / 120 Physical Exam Oriented: Normal Eyes: Normal Nose: Normal Throat: Normal Cardiovascular: Normal Auscultation: Bowel Sounds: Normal Tenderness: Normal Skin: Normal Musculoskeletal: Normal Psychiatric: Normal Mood Description: Calm Affect: Normal Speech Pattern: Clear and Appropriate Laboratory and Diagnostics Result Diagrams: 09/19/19 05:22 09/20/19 05:00 Labs: 09/16/19 17:01 Blood Blood Culture - Preliminary 09/16/19 16:57 Blood Blood Culture - Preliminary 09/16/19 18:54 Sputum - Expectorated Sputum Sputum Culture - Final 09/16/19 18:54 Sputum - Expectorated Sputum - Final Laboratory WBC 20.5 X10^3/uL (3.6-10.0) H D 09/19/19 05:22 RBC 4.36 X10^6/uL (4.7-6.0) L 09/19/19 05:22 Hgb 11.7 g/dL (13.5-18.0) L 09/19/19 05:22 Hct 35.1 % (42.0-54.0) L 09/19/19 05:22 MCV 80.6 fL (80.0-100.0) 09/19/19 05:22 MCH 26.7 pg (27.0-34.0) L 09/19/19 05:22 MCHC 33.2 g/dL (33.0-35.0) 09/19/19 05:22 RDW 15.5 % (11.6-16.5) 09/19/19 05:22 Plt Count 317 X10^3/uL (150.0-450.0) 09/19/19 05:22 MPV 8.1 fL (7.4-11.0) 09/19/19 05:22 Neut % (Auto) 87.7 % (42.0-75.0) H 09/19/19 05:22 Lymph % (Auto) 6.3 % (21.0-51.0) L 09/19/19 05:22 Mower % (Auto) 5.7 % (0.0-13.0) 09/19/19 05:22 Eos % (Auto) 0.0 % (0.9-2.9) L 09/19/19 05:22 Baso % (Auto) 0.3 % (0.2-1.0) 09/19/19 05:22 Neut # (Auto) 17.9 x10^3/uL (2.2-4.8) H 09/19/19 05:22 Lymph # (Auto) 1.3 X10^3/uL (1.3-2.9) 09/19/19 05:22 Mower # (Auto) 1.2 x10^3/uL (0.3-0.8) H 09/19/19 05:22 Eos # (Auto) 0.0 x10^3/uL (0.0-0.2) 09/19/19 05:22 Baso # (Auto) 0.1 X10^3/uL (0.0-0.1) 09/19/19 05:22 Absolute Nucleated RBC 0.0 /100WBC 09/19/19 05:22 Sample Site Rrad 09/20/19 06:41 ABG pH 7.410 (7.35-7.45) 09/20/19 06:41 ABG pCO2 35.0 mmHg (35.0-45.0) 09/20/19 06:41 ABG pO2 68.0 mmHg (80.0-100.0) L 09/20/19 06:41 ABG HCO3 22.2 mmol/L (22-26) 09/20/19 06:41 ABG O2 Saturation 93.0 % (90-100) 09/20/19 06:41 ABG Base Excess -1.9 mmol/L (-2.0-2.0) 09/20/19 06:41 Bony Test Pos 09/20/19 06:41 A-a Gradient 116.0 mmHg 09/20/19 06:41 FiO2 32.0 09/20/19 06:41 Blood Gas Comments Renzo well-mtf 09/20/19 06:41 Sodium 139 mmol/L (136-145) 09/20/19 05:00 Corrected Sodium 140 mmol/L (136-145) 09/20/19 05:00 Potassium 4.0 mmol/L (3.5-5.1) 09/20/19 05:00 Chloride 108 mmol/L (98-107) H 09/20/19 05:00 Carbon Dioxide 21.4 mmol/L (21-32) 09/20/19 05:00 BUN 21 mg/dL (7-18) H 09/20/19 05:00 Creatinine 1.14 mg/dL (0.70-1.30) 09/20/19 05:00 Est GFR (MDRD) Af Amer > 60 (>60) 09/20/19 05:00 Est GFR (MDRD) Non-Af > 60 (>60) 09/20/19 05:00 Glucose 127 mg/dL (65-99) H 09/20/19 05:00 POC Glucose (mg/dL) 125 mg/dL (65-99) H 09/20/19 05:29 Lactic Acid 0.9 mmol/L (0.4-2.0) 09/16/19 17:46 Calcium 8.8 mg/dL (8.5-10.1) 09/20/19 05:00 Corrected Calcium 9.6 mg/dL (8.5-10.1) 09/17/19 04:35 Magnesium 2.0 mg/dL (1.7-2.9) 09/19/19 05:22 Total Bilirubin 0.30 mg/dL (0.2-1.0) 09/17/19 04:35 AST 36 Units/L (15-37) 09/17/19 04:35 ALT 41 Units/L (12-78) 09/17/19 04:35 Alkaline Phosphatase 47 Units/L (46-116) 09/17/19 04:35 Troponin I < 0.02 ng/mL (0-1.5) 09/16/19 16:57 Total Protein 6.2 g/dL (6.4-8.2) L 09/17/19 04:35 Albumin 2.3 g/dL (3.4-5.0) L 09/17/19 04:35 Globulin 3.9 g/dL (2.5-4.5) 09/17/19 04:35 Albumin/Globulin Ratio 0.6 Ratio (1.1-2.1) L 09/17/19 04:35 Specimen Type Clean catch urine 09/16/19 20:11 Urine Color Yellow (YELLOW) 09/16/19 20:11 Urine Appearance Clear (CLEAR) 09/16/19 20:11 Urine pH 5.0 (5.0 - 8.0) 09/16/19 20:11 Ur Specific [place] 1.015 (1.000-1.030) 09/16/19 20:11 Urine Protein 1+ (NEGATIVE) 09/16/19 20:11 Urine Glucose (UA) Negative (NEGATIVE) 09/16/19 20:11 Urine Ketones Negative (NEGATIVE) 09/16/19 20:11 Urine Occult Blood Negative (NEGATIVE) 09/16/19 20:11 Urine Nitrite Negative (NEGATIVE) 09/16/19 20:11 Urine Bilirubin Negative (NEGATIVE) 09/16/19 20:11 Urine Urobilinogen Normal (NORMAL) 09/16/19 20:11 Ur Leukocyte Esterase Negative (NEGATIVE) 09/16/19 20:11 Urine RBC None seen /HPF (0-3) 09/16/19 20:11 Urine WBC None seen /HPF (0-5) 09/16/19 20:11 Ur Squamous Epith Cells Rare /HPF (NEGATIVE) 09/16/19 20:11 Urine Bacteria Negative /HPF (NEGATIVE) 09/16/19 20:11 Ur Culture Indicated? No/not indicated 09/16/19 20:11 Vancomycin Trough 11.2 ug/mL (15-20) L 09/18/19 21:11 Influenza Type A (PCR) Negative (NEGATIVE) 09/18/19 00:05 Influenza Type B (PCR) Negative (NEGATIVE) 09/18/19 00:05 Mycoplasma pneumon IgG Negative (NEGATIVE) 09/17/19 22:41 Anti-Streptolysin O Ab <55 IU/mL (0-330) 09/17/19 22:41 Plan (1) HAP (hospital-acquired pneumonia): Status: Acute Plan: Pt has had no improvement in O2 requirement after receiving IV antibiotics, IV solumedrol, and breathing treatments. On exam his lungs have diminished breath sounds and decreased air movement. Attempt to wean down to 3 liters pt became hypoxic and ABG this morning supports severe hypoxemia. It is my recommendation that he be transferred to high level of care facility to be evaluated by pulmonary, w/ possibility of performing non-emergent bronchoscopy. CXR:no change from prior. ABG this morning pH:7.41, pO2 68, pCO2 35, HCO3 22. CXR(09/18)-No change bibasilar interstitial and peribronchial infiltrates suggestive of bibasilar bronchopneumonia. 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 Treating for HCAP with Abx(09/17):Vancomycin +Cefepime+Azithromycin Solumedrol 60 mg IV q8hrs. Duonebs, Pulmicort BID, aggressive pulmonary toilet. SputumCx:Normal charis (2) Hypoxemia: Status: Acute Plan: noted on ABG, continue O2, currently on 4L, wean as tolerated to keep sats >92%. (3) Type 2 diabetes mellitus: Status: Chronic Qualifiers: Diabetes mellitus complication status: with other specified complication Diabetes mellitus buttermaker helper insulin use: unspecified senior care insulin use status Qualified Code(s): E11.69 - Type 2 diabetes mellitus with other specified complication Plan: on metformin 850 BID, will continue SSI while inpatient
[2019-09-20] MEDS: LOVENOX INJ 40 MG SYR SC SCH (08:26)
[2019-09-20] MEDS: ROBITUSSIN DM PO PRN (08:26)
[2019-09-20] MEDS: ZITHROMAX TAB 250 MG PO SCH (08:26)
[2019-09-20] MEDS: ASPIRIN 81 MG CHEWTAB PO SCH (08:26)
--- NOTE | 2019-09-20 08:57 | W.DIS.FURT ---
Summary of Discharge Discharge Summary of Date Date of Exam: 09/20/19 Admission Date Date of Admission: 09/16/19 Admission Diagnosis Patient Problems (Updated 09/18/19 @ 09:56 by Lisa Higuera) HAP (hospital-acquired pneumonia) (Acute) J18.9, Y95 Hypoxemia (Acute) R09.02 Type 2 diabetes mellitus (Chronic) E11.9 Hospital Course: Pt is a 59 y/o male pmhx DMT2 admitted for bronchopneumonia and hypoxia. His history includes being treated multiple times over the past month at another facility in [place], [place] for bronchopneumonia. During that hospital stay, he was treated w/ antibiotics, steroids, discharged w/ home O2 of 2L(previously did not require any oxygen supplementation), and told to follow up with pulmonary in 2 months at the [facility] in [place], [place]. Unfortunately, his breat dany and shortness of breath worsened in the interim, so he went to [facility] ED. He was noted in ED to be severely hypoxic on ABG and admitted. He denied fevers, but reported continued productive cough with white sputum. He did not have any edema. No sick contact or recent travel. Non-smoker. Concern for PE was r/o by CT Imaging, impression c/w bronchopneumonia. It did comment on poss ible underlying ILD due to ground glass opacities. While inpatient he was treated for HAP, started on abx(09/17/19):Vancomycin +Cefepime+Azithromycin. Pt has had no improvement in his O2 requirement after receiving IV solumedrol 60mg q6h, Duonebns, Pulmicort, and aggressive pulmonary toilet. On exam his lungs have diminished breath sounds and decreased air movement. Attempt to wean down to 3 liters pt became hypoxic and ABG this morning supports severe hypoxemia, ABG this morning pH:7.41, pO2 68, pCO2 35, HCO3 22. It is recommended he be transferred to higher level of care facility to be evaluated by pulmonary, w/ possibility of performing non-emergent bronchoscopy. Discussed w/ hospitalist Dr Pepe of [place], [place], and transfer of care accepted. -CXR(09/20/19): no change from prior -CTA(09/16/19): negative for PE. Diffuse peribronchovascular and interstitial interstitial coarse reticular and ground-glass opacities in a predominantly basilar distribution. Findings may reflect infectious/ inflammatory interstitial pneumonia or hypersensitivity pneumonitis. -CXR(09/18):No change bibasilar interstitial and peribronchial infiltrates suggestive of bibasilar bronchopneumonia. -SputumCx:Normal charis -BloodCx:NGTD Vital Signs: Vital Signs (72 hours) 09/17/19 11:10 09/17/19 12:00 09/17/19 16:00 Temperature 98.4 F 97.8 F Pulse Rate Pulse Rate [Apical] 94 H 104 H Respiratory Rate 28 H 22 22 Blood Pressure [Left Arm] Blood Pressure [Right Arm] 141/77 150/83 O2 Sat by Pulse Oximetry 96 96 09/17/19 16:39 09/17/19 20:00 09/17/19 20:29 Temperature 97.4 F L Pulse Rate 94 H 108 H Pulse Rate [Apical] 111 H Respiratory Rate 20 24 Blood Pressure [Left Arm] Blood Pressure [Right Arm] 149/82 O2 Sat by Pulse Oximetry 96 96 95 09/18/19 00:00 09/18/19 00:23 09/18/19 04:00 Temperature 98.3 F 97.7 F Pulse Rate Pulse Rate [Apical] 106 H 93 H Respiratory Rate 22 18 24 Blood Pressure [Left Arm] Blood Pressure [Right Arm] 140/75 135/66 O2 Sat by Pulse Oximetry 96 96 09/18/19 08:00 09/18/19 08:28 09/18/19 12:00 Temperature 98.0 F 98.0 F Pulse Rate 98 H Pulse Rate [Apical] 100 H 98 H Respiratory Rate 20 20 20 Blood Pressure [Left Arm] Blood Pressure [Right Arm] 131/69 135/66 O2 Sat by Pulse Oximetry 96 93 L 97 09/18/19 16:00 09/18/19 20:00 09/18/19 23:36 Temperature 97.7 F 97.9 F 98.4 F Pulse Rate Pulse Rate [Apical] 88 93 H 89 Respiratory Rate 18 20 20 Blood Pressure [Left Arm] Blood Pressure [Right Arm] 164/88 144/85 158/85 O2 Sat by Pulse Oximetry 96 96 94 L 09/19/19 04:00 09/19/19 08:00 09/19/19 08:57 Temperature 98.3 F 97.5 F L Pulse Rate 82 Pulse Rate [Apical] 90 109 H Respiratory Rate 20 22 Blood Pressure [Left Arm] Blood Pressure [Right Arm] 146/78 117/72 O2 Sat by Pulse Oximetry 96 94 L 97 09/19/19 12:00 09/19/19 12:25 09/19/19 16:00 Temperature 97.7 F 97.9 F Pulse Rate Pulse Rate [Apical] 98 H 58 L Respiratory Rate 20 18 Blood Pressure [Left Arm] 130/71 Blood Pressure [Right Arm] 129/67 O2 Sat by Pulse Oximetry 96 92 L 98 09/19/19 17:24 09/19/19 20:00 09/19/19 23:20 Temperature 97.9 F 97.9 F Pulse Rate 89 Pulse Rate [Apical] 93 H 84 Respiratory Rate 20 20 Blood Pressure [Left Arm] 148/81 133/83 Blood Pressure [Right Arm] O2 Sat by Pulse Oximetry 99 98 98 09/20/19 04:00 Temperature 98.1 F Pulse Rate Pulse Rate [Apical] 86 Respiratory Rate 20 Blood Pressure [Left Arm] 131/80 Blood Pressure [Right Arm] O2 Sat by Pulse Oximetry 98 Labs: Laboratory Last Values WBC 20.5 X10^3/uL (3.6-10.0) H D 09/19/19 05:22 RBC 4.36 X10^6/uL (4.7-6.0) L 09/19/19 05:22 Hgb 11.7 g/dL (13.5-18.0) L 09/19/19 05:22 Hct 35.1 % (42.0-54.0) L 09/19/19 05:22 MCV 80.6 fL (80.0-100.0) 09/19/19 05:22 MCH 26.7 pg (27.0-34.0) L 09/19/19 05:22 MCHC 33.2 g/dL (33.0-35.0) 09/19/19 05:22 RDW 15.5 % (11.6-16.5) 09/19/19 05:22 Plt Count 317 X10^3/uL (150.0-450.0) 09/19/19 05:22 MPV 8.1 fL (7.4-11.0) 09/19/19 05:22 Neut % (Auto) 87.7 % (42.0-75.0) H 09/19/19 05:22 Lymph % (Auto) 6.3 % (21.0-51.0) L 09/19/19 05:22 [place] % (Auto) 5.7 % (0.0-13.0) 09/19/19 05:22 Eos % (Auto) 0.0 % (0.9-2.9) L 09/19/19 05:22 Baso % (Auto) 0.3 % (0.2-1.0) 09/19/19 05:22 Neut # (Auto) 17.9 x10^3/uL (2.2-4.8) H 09/19/19 05:22 Lymph # (Auto) 1.3 X10^3/uL (1.3-2.9) 09/19/19 05:22 [place] # (Auto) 1.2 x10^3/uL (0.3-0.8) H 09/19/19 05:22 Eos # (Auto) 0.0 x10^3/uL (0.0-0.2) 09/19/19 05:22 Baso # (Auto) 0.1 X10^3/uL (0.0-0.1) 09/19/19 05:22 Absolute Nucleated RBC 0.0 /100WBC 09/19/19 05:22 Sample Site Rrad 09/20/19 06:41 ABG pH 7.410 (7.35-7.45) 09/20/19 06:41 ABG pCO2 35.0 mmHg (35.0-45.0) 09/20/19 06:41 ABG pO2 68.0 mmHg (80.0-100.0) L 09/20/19 06:41 ABG HCO3 22.2 mmol/L (22-26) 09/20/19 06:41 ABG O2 Saturation 93.0 % (90-100) 09/20/19 06:41 ABG Base Excess -1.9 mmol/L (-2.0-2.0) 09/20/19 06:41 Bony Test Pos 09/20/19 06:41 A-a Gradient 116.0 mmHg 09/20/19 06:41 FiO2 32.0 09/20/19 06:41 Blood Gas Comments Renzo well-mtf 09/20/19 06:41 Sodium 139 mmol/L (136-145) 09/20/19 05:00 Corrected Sodium 140 mmol/L (136-145) 09/20/19 05:00 Potassium 4.0 mmol/L (3.5-5.1) 09/20/19 05:00 Chloride 108 mmol/L (98-107) H 09/20/19 05:00 Carbon Dioxide 21.4 mmol/L (21-32) 09/20/19 05:00 BUN 21 mg/dL (7-18) H 09/20/19 05:00 Creatinine 1.14 mg/dL (0.70-1.30) 09/20/19 05:00 Est GFR (MDRD) Af Amer > 60 (>60) 09/20/19 05:00 Est GFR (MDRD) Non-Af > 60 (>60) 09/20/19 05:00 Glucose 127 mg/dL (65-99) H 09/20/19 05:00 POC Glucose (mg/dL) 125 mg/dL (65-99) H 09/20/19 05:29 Lactic Acid 0.9 mmol/L (0.4-2.0) 09/16/19 17:46 Calcium 8.8 mg/dL (8.5-10.1) 09/20/19 05:00 Corrected Calcium 9.6 mg/dL (8.5-10.1) 09/17/19 04:35 Magnesium 2.0 mg/dL (1.7-2.9) 09/19/19 05:22 Total Bilirubin 0.30 mg/dL (0.2-1.0) 09/17/19 04:35 AST 36 Units/L (15-37) 09/17/19 04:35 ALT 41 Units/L (12-78) 09/17/19 04:35 Alkaline Phosphatase 47 Units/L (46-116) 09/17/19 04:35 Troponin I < 0.02 ng/mL (0-1.5) 09/16/19 16:57 Total Protein 6.2 g/dL (6.4-8.2) L 09/17/19 04:35 Albumin 2.3 g/dL (3.4-5.0) L 09/17/19 04:35 Globulin 3.9 g/dL (2.5-4.5) 09/17/19 04:35 Albumin/Globulin Ratio 0.6 Ratio (1.1-2.1) L 09/17/19 04:35 Specimen Type Clean catch urine 09/16/19 20:11 Urine Color Yellow (YELLOW) 09/16/19 20:11 Urine Appearance Clear (CLEAR) 09/16/19 20:11 Urine pH 5.0 (5.0 - 8.0) 09/16/19 20:11 Ur Specific [place] 1.015 (1.000-1.030) 09/16/19 20:11 Urine Protein 1+ (NEGATIVE) 09/16/19 20:11 Urine Glucose (UA) Negative (NEGATIVE) 09/16/19 20:11 Urine Ketones Negative (NEGATIVE) 09/16/19 20:11 Urine Occult Blood Negative (NEGATIVE) 09/16/19 20:11 Urine Nitrite Negative (NEGATIVE) 09/16/19 20:11 Urine Bilirubin Negative (NEGATIVE) 09/16/19 20:11 Urine Urobilinogen Normal (NORMAL) 09/16/19 20:11 Ur Leukocyte Esterase Negative (NEGATIVE) 09/16/19 20:11 Urine RBC None seen /HPF (0-3) 09/16/19 20:11 Urine WBC None seen /HPF (0-5) 09/16/19 20:11 Ur Squamous Epith Cells Rare /HPF (NEGATIVE) 09/16/19 20:11 Urine Bacteria Negative /HPF (NEGATIVE) 09/16/19 20:11 Ur Culture Indicated? No/not indicated 09/16/19 20:11 Vancomycin Trough 11.2 ug/mL (15-20) L 09/18/19 21:11 Influenza Type A (PCR) Negative (NEGATIVE) 09/18/19 00:05 Influenza Type B (PCR) Negative (NEGATIVE) 09/18/19 00:05 Mycoplasma pneumon IgG Negative (NEGATIVE) 09/17/19 22:41 Anti-Streptolysin O Ab <55 IU/mL (0-330) 09/17/19 22:41 Reason For Visit: HCAP, HYPOXEMIA Discharge Date Discharge Date: 09/20/19 Discharge Diagnosis All Active Problems (Updated 09/18/19 @ 09:56 by Lisa Higuera) HAP (hospital-acquired pneumonia) (Acute) Hypoxemia (Acute) Type 2 diabetes mellitus (Chronic) Plan of Treatment: Continue with present treatment and follow up plan. Pt is to keep follow up appointment as instructed and take medications as ordered. Discharge Medications Discharge Medications: No Known Drug Allergies Allergy (Verified 09/16/19 16:20) CONTINUE taking the following medications albuterol sulfate 2.5 mg INHALATION QID 09/16/19 [History] aspirin 81 mg PO DAILY 09/16/19 [History] benzonatate 100 mg PO TID 09/16/19 [History] dextromethorphan-guaifenesin [Tussin DM] 10 ml PO Q4-6H PRN 09/16/19 [History] metformin 850 mg PO BID 09/16/19 [History] Discharge Disposition Discharge Disposition: [place], [place]
[2019-09-20] MEDS: PULMICORT NEB TX 0.5 MG NEB SCH (09:14)
[2019-09-20 13:00] VITALS: BP 169/96
[2019-09-20] MEDS ORDERED: PHARMACY COMMENT IV NR (13:30)
--- NOTE | 2019-09-23 15:12 | RAD ---
Examination: AP chest History: Chest pain Comparison reference: None Findings: The heart is upper normal in transverse diameter. There are patchy pulmonary densities in the lower lobes consistent with inflammatory disease/atelectasis. The upper lobes are clear. There is no large pleural effusion. Impression: Borderline cardiac enlargement. Bibasal pulmonary densities, right greater than left, consistent with multi focal pneumonia. Follow-up recommended. Reported By:
== END 2019-09-20 13:45 | disposition short-term general hospital (02) | DRG 195 ==
LOC: ER 16:18 → MED/SURG 21:29
PROVIDERS: ADMIT Emergency Medicine; ATTEND Family Medicine
DX: R09.02 Hypoxemia; E11.65 Type 2 diabetes mellitus with hyperglycemia; I10 Essential (primary) hypertension; J18.0 Bronchopneumonia, unspecified organism; R06.02 Shortness of breath
CPT/HCPCS: 36415; 36600; 71010; 71020; 71045; 71046; 71275; 80048; 80053; 80202; 81001; 82565; 82803; 83605; 83735; 84484; 85025; 86060; 86738; 87040; 87070; 87205; 87502; 93005; 94640; 94669; 94760; 96365; 96367; 96374; 96375; 99284; A4216; A4222; Q0144; J0692; J1650; J1815; J2930; J3370; J7030; J7050; J7060; J7620; J7626